=== PATIENT | male | born 1970 | race Caucasian/White ===

== ENCOUNTER 2018-03-31 20:57 | Emergency (ER) | payer MEDICAID, SELFPAY ==
[2018-03-31 20:58] VITALS: BP 144/87; PULSE 93; RESP 16; TEMP 36.9; O2SAT 99; BMI 25.8
--- NOTE | 2018-03-31 22:53 | RAD_ITS ---
STUDY: X-RAY - RIGHT SHOULDER REASON FOR EXAM: Male, 47 years old. Trauma TECHNIQUE: 4 view(s) of the shoulder. COMPARISON: None. FINDINGS: There is moderate degenerative arthrosis of the glenohumeral articulation. There is degenerative arthrosis of the acromioclavicular joint without inferior osseous spur formation. Normal acromion. There is no demonstrated inferior acromial spur. Normal humeral head and visualized proximal humerus. There is a metallic anchor in the humeral head suggesting prior rotator cuff surgery. The soft tissue structures are unremarkable. Normal visualized pulmonary apex. RAD/Shoulder min 2 Views IMPRESSION: There is degenerative arthrosis of the glenohumeral joint. There is NO fracture or dislocation. Electronically Signed: Reese Clemente MD at 2:00 EDT , Service support ,
--- NOTE | 2018-03-31 22:53 | EKG12_ITS ---
Test Reason : Blood Pressure : / mmHG Vent. Rate : 066 BPM Atrial Rate : 066 BPM P-R Int : 134 ms QRS Dur : 100 ms QT Int : 396 ms P-R-T Axes : 031 026 056 degrees QTc Int : 415 ms Normal sinus rhythm Normal ECG Confirmed by MARICRUZ DAO MD ([id number]), advertising editor SHANTHI MACK ([id number] on 04/02/2018 3:37:23 PM Referred By: VALENTINA Confirmed By:MARICRUZ DAO MD
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
--- NOTE | 2018-03-31 23:40 | RAD_ITS ---
STUDY: X-RAY CHEST REASON FOR EXAM: Male, 47 years old. Trauma TECHNIQUE: Frontal view COMPARISON: None. FINDINGS: The lungs are clear and expanded. There is no demonstrated pleural abnormality. Normal size heart. Normal mediastinum and bia. Normal visualized pulmonary arteries. Normal visualized aortic arch and descending thoracic aorta. Normal visualized thoracic spine. Normal visualized ribs, clavicles, and shoulders. There is no demonstrated abnormality of the visualized soft tissue structures of the upper abdomen. IMPRESSION: Normal x-ray examination of the chest. Electronically Signed: Reese Clemente MD at 0:22 EDT , Service support , STUDY: X-RAY - BILATERAL RIBS WITH CHEST REASON FOR EXAM: Male, 47 years old. Trauma TECHNIQUE - RIBS: 8 view(s) of the ribs. TECHNIQUE - CHEST: Single frontal view of the chest. COMPARISON: None. FINDINGS - RIBS : There is a fracture of LEFT rib #3. FINDINGS - CHEST: The lungs are clear and expanded. There is no demonstrated pleural abnormality. Normal size heart. Normal mediastinum and bia. Normal visualized pulmonary arteries. Normal visualized aortic arch and descending thoracic aorta. Normal visualized thoracic spine. Normal visualized ribs, clavicles, and shoulders. There is no demonstrated abnormality of the visualized soft tissue structures of the upper abdomen. RAD/Ribs Michael Min 4V w/PA Chest IMPRESSION: RIBS: Fracture of LEFT rib #3. CHEST: Normal x-ray examination of the chest. Electronically Signed: Reese Clemente MD at 0:23 EDT , Service support ,
[2018-04-01 00:38] VITALS: BP 119/83; PULSE 69; RESP 16; O2SAT 99
--- NOTE | 2018-04-01 01:15 | ED.DEP ---
ED Disposition - Plan for ED Patient: Chief Complaint: Other, Pain/Inj Instructions: ED Fx Rib Prescriptions: Oxycodone HCl/Acetaminophen [Percocet 5/325] 1 tablet PO Q6H PRN PRN 2 Days #8 tablet PRN Reason: Pain Referrals: [facility] Doctor,Out of [Primary Care Provider] -
[2018-04-01] MEDS: oxyCODONE 5 MG Tablet PO (01:40)
== END 2018-04-01 01:41 | disposition home or self-care (01) ==
LOC: ED 23:11
PROVIDERS: Emergency Provider Emergency Medicine
DX: S22.32XA Fracture of one rib, left side, initial encounter for closed fracture (principal); W50.0XXA Accidental hit or strike by another person, initial encounter; Y93.9 Activity, unspecified; Y92.9 Unspecified place or not applicable; Z72.0 Tobacco use
CPT/HCPCS: 71111; 73030; 84484; 93005; 99284; A4216

== ENCOUNTER 2021-06-08 07:09 | Emergency (ER) | payer MEDICAID, SELFPAY ==
[2021-06-08 07:10] VITALS: BP 130/90; PULSE 82; RESP 16; TEMP 36.1; O2SAT 97; BMI 25.9
--- NOTE | 2021-06-08 07:19 | CT_ITS ---
STUDY: CT ABDOMEN AND PELVIS WITH CONTRAST REASON FOR EXAM: Male, 50 years old. RUQ pain, eval gallbladder RADIATION DOSAGE (If Supplied By Facility): CTDIvol = ( 13.96 ) mGy, DLP = ( 950.5 ) mGycm TECHNIQUE: Transaxial images were obtained from the dome of the diaphragm to the symphysis pubis without oral contrast. IV 100mL Isovue-300 was administered. Sagittal and coronal images were reconstructed. Individualized dose optimization techniques were used for this CT. COMPARISON: None. FINDINGS: Minimal degree of increased markings at the lung bases suggestive of basilar atelectasis. Coronary artery calcification. Normal liver. Normal gallbladder and extrahepatic biliary system. Normal spleen. Normal pancreas. Normal bilateral adrenal glands. Mild degree of right hydronephrosis and proximal right hydroureter. This is due to a 6.3 mm calculus in the proximal portion of the right ureter. There is evidence of a right perinephric and periureteric stranding. A punctate calcification is also seen in the lower pole calyx of the right kidney. Normal left kidney. Normal visualized stomach. Normal small intestine. There are scattered colonic diverticula consistent with diverticulosis. The appendix is visualized and appears normal. There is scattered atherosclerotic calcification of the abdominal aorta, without a demonstrated aneurysm. Normal inferior vena cava. Normal retroperitoneum. Normal urinary bladder. Prostate measures 3.4 cm x 3.9 cm. There is a small umbilical hernia containing fat. Disc space narrowing and degeneration at the L4-L5 level. CT/Abdomen/Pelvis W IV Cont ONLY IMPRESSION: 6.3 mm catheter is in the proximal portion of the right ureter causing right hydronephrosis and right hydroureter with right perinephric stranding. Punctate calculus in the lower pole calyx of the right kidney. Mild degree of bibasilar atelectasis. Electronically Signed: Mike Short MD at 8:04 EDT , Service support ,
--- NOTE | 2021-06-08 07:20 | EDS_ITS ---
HPI History of Present Illness Chief Complaint: Abd Pain Informant: patient Narrative Narrative: He states that this started around 5 AM this morning.Patient is a 50-year-old male who presents to the emergency department for right upper quadrant abdominal pain. He describes the pain as a sharp 15 out of 10. It does radiate into the back on the right side. He does have a history of kidney stones but does not feel that this is similar to that pain. He states any movement seems to make it worse. He did have an episode of vomiting this morning. No change of bowel movements lately. He denies any urinary symptoms. No fevers or chills. He tried taking a migraine medication because after he threw up he started to develop a pressure in his head. He denies any chest pain or shortness of breath. PFSH PFSH Home Medications [id number] [Excedrin Migraine Caplet] 1 ea PO DAILY PRN 11/03/14 [History Last Taken Unknown] fluticasone propionate 1 spray NASAL BID 03/31/18 [History Last Taken Unknown] oxycodone-acetaminophen 1 tab PO Q6H PRN PRN 2 Days #8 tablet 04/01/18 [Rx Last Taken Unknown] cephalexin 500 mg PO BID 7 Days #14 cap 06/08/21 [Rx Last Taken Unknown] naproxen [Naprosyn] 500 mg PO BID PRN #20 tab 06/08/21 [Rx Last Taken Unknown] ondansetron 4 mg PO Q8H PRN 4 Days #10 tab 06/08/21 [Rx Last Taken Unknown] oxycodone 5 mg PO Q8H PRN 4 Days #12 tab 06/08/21 [Rx Last Taken Unknown] tamsulosin [Flomax] 0.4 mg PO DAILY #7 cap 06/08/21 [Rx Last Taken Unknown] Allergy/AdvReac Type Severity Reaction Status Date / Time hydrocodone Allergy Rash Verified 06/08/21 07:09 venom-honey bee Allergy Unknown Verified 06/08/21 07:09 [bee venom (honey bee)] Surgical History (Updated 06/08/21 @ 07:19 by Susan Avelar) History of arthroplasty of right shoulder Social History Smoking Status: Current every day smoker tobacco type: cigarettes ROS ROS ED Constitutional Constitutional ED: Denies chills or fever(s) ENT ENT ED: Denies epistaxis or rhinorrhea Cardiovascular Cardiovascular: Denies chest pain or palpitations Respiratory/Chest Respiratory/Chest: Denies cough or dyspnea Gastrointestinal Gastrointestinal: Reports abdominal pain, nausea and vomiting; Denies constipation, diarrhea or melena Genitourinary Genitourinary ED: Denies dysuria, hematuria or urinary frequency Musculoskeletal Musculoskeletal: Denies back pain or neck pain Integumentary Denies rash Neurologic Neurologic: Denies dizziness or weakness EXAM Physical Exam Const Vital Signs: 06/08/21 07:10 06/08/21 11:35 Temperature 96.9 F L Temperature Source Temporal Pulse Rate 82 76 Respiratory Rate 16 16 Blood Pressure 130/90 H 125/97 H Blood Pressure Mean 103 106 Pulse Ox 97 98 Oxygen Delivery Method Room Air Room Air Positive well nourished and well developed General Appearance ED: well developed and NAD HEENT Reports normocephalic, head/scalp atraumatic and moist mucous membranes Eyes PERRL and EOMs intact bilaterally Neck supple Chest Wall inspection of chest normal Resp normal respiratory effort and clear to auscultation bilaterally Auscultation: Negative for rales, rhonchi or wheezes Cardio regular rate, regular rhythm and no murmurs GI normal to inspection, nondistended, normoactive bowel sounds GI Narrative: Tenderness in the right upper quadrant. Positive Roberts sign. No pain over McBurney's point. Palpation: soft; Negative for rebound tenderness present Back/Spine no CVA tenderness Extremity normal to inspection General Extremety ED: Negative for edema or tenderness General Extremity: Negative for edema Neuro Sensorium / Orientation: alert Motor Exam: strength 5/5 throughout Psych mental status grossly normal Skin no rashes or lesions noted MDM MDM MDM Narrative Medical decision making narrative: Patient presents to the ED for abdominal pain. He does have right upper quadrant tenderness on physical exam. His vital signs within normal limits. Patient was given a dose of morphine for symptomatic treatment. He does have a allergy to hydrocodone but states it is actually the shell he has had other opioid medications before in the past. We will treat him with morphine. Basic lab work being obtained along with CT scan of the abdomen/pelvis. Patient CT scan was significant for 6.3 mm proximal ureteral stone. There is hydronephrosis and perinephric stranding associated this. Patient's urine does show positive nitrites but no white blood cells or bacteria. I did discuss the case with the on-call urologist, Dr. Gena wilkerson. Since patient's pain is well controlled this time he does feel comfortable with him going home. He is given a prescription for Naprosyn and oxycodone. He is also given a prescription for Zofran to take as needed for nausea. He is given Flomax and Keflex prophylactically. He is given urology referral for close follow-up. Return precautions are reviewed with him. He understands and is agreeable this plan. Discharged home in stable condition. All questions answered. Lab Data Labs: Laboratory Results - last 24 hr 06/08/21 06/08/21 06/08/21 07:15 07:15 08:25 WBC 11.1 H RBC 4.63 Hgb 14.7 Hct 43.4 MCV 93.7 MCH 31.7 MCHC 33.9 RDW Std Deviation 42.6 RDW Coeff of Mukesh 12.4 Plt Count 249 MPV 9.3 Immature Gran % (Auto) 0.400 Neut % (Auto) 68.0 Lymph % (Auto) 21.2 Haakon % (Auto) 7.5 Eos % (Auto) 2.4 Baso % (Auto) 0.5 Absolute Neuts (auto) 7.6 Absolute Lymphs (auto) 2.36 Nucleated RBC % 0 Sodium 137 Potassium 3.8 Chloride 104 Carbon Dioxide 27.0 Anion Gap 6 BUN 16 Creatinine 1.22 Estim Creat Clear Calc 75.63 Est GFR (MDRD) Af Amer 81 Est GFR (MDRD) Non-Af 67 BUN/Creatinine Ratio 13.1 Glucose 124 H Calcium 9.2 Total Bilirubin 0.20 AST 19 ALT 26 Alkaline Phosphatase 67 Total Protein 7.4 Albumin 4.2 Globulin 3.2 Albumin/Globulin Ratio 1.3 Lipase 93 Urine Color Pamela Urine Clarity Cloudy Urine pH 5.0 Ur Specific [place] 1.020 Urine Protein 100 H Urine Glucose (UA) Normal Urine Ketones Negative Urine Occult Blood 250 H Urine Nitrite Positive H Urine Bilirubin Negative Urine Urobilinogen 1 H Ur Leukocyte Esterase 100 H Urine RBC > 100 SEEN Urine WBC 0 SEEN Ur Squamous Epith Cells 0 SEEN Calcium Oxalate Crystal 1+ Urine Bacteria 0 SEEN Urine Mucus 0 SEEN Radiography Diagnostic Testing: Radiology Impression Abdomen/Pelvis CT 06/08/21 07:19 IMPRESSION: 6.3 mm catheter is in the proximal portion of the right ureter causing right hydronephrosis and right hydroureter with right perinephric stranding. Punctate calculus in the lower pole calyx of the right kidney. Mild degree of bibasilar atelectasis. Electronically Signed: Mike Short MD at 8:04 EDT , Service support , Discharge Plan Triage Chief Complaint: Abd Pain ED Provider: Se Stephens Dx/Rx/DC Orders Clinical Impression: Kidney stone on right side Instructions: ED Kidney Stone w/ Colic Prescriptions: New naproxen [Naprosyn] 500 mg tablet 500 mg PO BID PRN (Reason: pain) Qty: 20 RF: 0 oxycodone 5 mg tablet 5 mg PO Q8H PRN (Reason: pain) 4 Days Qty: 12 RF: 0 ondansetron 4 mg tablet,disintegrating 4 mg PO Q8H PRN (Reason: nausea and vomiting) 4 Days Qty: 10 RF: 0 tamsulosin [Flomax] 0.4 mg capsule 0.4 mg PO DAILY Qty: 7 RF: 0 cephalexin 500 mg capsule 500 mg PO BID 7 Days Qty: 14 RF: 0 No Action Excedrin Migraine 1 EACH tablet 1 ea PO DAILY PRN (Reason: HEADACHE) RF: 0 fluticasone propionate 1 SPRAY spray,suspension 1 spray NASAL BID RF: 0 oxycodone-acetaminophen 1 TABLET tablet 1 tab PO Q6H PRN PRN (Reason: Pain) 2 Days Qty: 8 RF: 0 Primary Care Provider: Cory Uribe Referrals: Ceasar King MD [STAFF PHYSICIAN] - 2 Days Cory Uribe DO [Primary Care Provider] - Disposition Disposition: Home, Self Care Discharge Date/Time: 06/08/21 11:39
[2021-06-08] MEDS: Morphine 4 MG/ML Syringe IV (07:24)
[2021-06-08 07:28] LABS: Absolute Lymphocyte Count 2.36 X10^3/uL (0.83-4.51); Absolute Neutrophil Count 7.6 X10^3/uL (2.0-7.7); Basophil# 0.06 X10^3/uL; Basophil% 0.5 % (0-1); Eosinophil# 0.27 X10^3/uL; Eosinophils% 2.4 % (0-5); Hematocrit 43.4 % (40-54); Hemoglobin 14.7 g/dL (13.0-16.5); Lymphocyte # 2.36 X10^3/ul (0.83-4.51); Lymphocyte % 21.2 % (19-41); Mean Corp Hgb Conc 33.9 g/dL (32-36); Mean Corpuscular Hgb 31.7 pg (27.0-32.0); Mean Corpuscular Volume 93.7 fL (80-94); Mean Platelet Vol. 9.3 fl (6.2-12.0); Monocyte# 0.84 X10^3/uL; Monocyte% 7.5 % (0-10); NRBC Flagged by Analyzer 0 % (0-5); Neutrophil # 7.57 X10^3/uL (2.7-7.7); Platelet Count 249 K/mm3 (150-450); RBC Distribution Width CV 12.4 % (11.6-14.6); RBC Distribution Width SD 42.6 fl (35.1-43.9); Red Blood Count 4.63 M/mm3 (4.6-6.2); White Blood Count 11.1 K/mm3 (4.4-11.0)
[2021-06-08 07:43] LABS: ALB/GLOB Ratio 1.3 RATIO (0.9-2.4); AST(SGOT) 19 U/L (15-37); Alanine Aminotransfer ALT/SGPT 26 U/L (16-61); Albumin, Serum 4.2 g/dL (3.2-5.0); Alkaline Phosphatase 67 U/L (45-117); Anion Gap 6 (5-15); BUN 16 mg/dL (7-18); BUN/Creat Ratio 13.1 RATIO (10-20); Calcium,Total 9.2 mg/dL (8.5-10.1); Chloride 104 mmol/L (98-107); Creatinine, Serum 1.22 mg/dL (0.70-1.30); EST Glomerular Filtration Rate 67 mL/min (>60); Est Glom Filt Rate - Afr Amer 81 mL/min (>60); Estimated Creatinine Clearance 75.63 ml/min; Globulin 3.2 g/dL (2.2-4.2); Glucose 124 mg/dL (74-106); Lipase 93 U/L (73-393); Potassium 3.8 mmol/L (3.5-5.1); Protein, Total 7.4 g/dL (6.4-8.2); Sodium Level 137 mmol/L (136-145)
[2021-06-08 08:30] LABS: Bacteria 0 SEEN /hpf (None Seen); Mucous, Urine 0 SEEN /hpf (<or=2+); Squamous Epithelial Cells - UA 0 SEEN /hpf (0-5); White Blood Cells 0 SEEN /hpf (0-5)
[2021-06-08 08:36] LABS: Color, Urine Amber (Yellow); Glucose, Dipstick Normal (Normal); Ketone-Dipstick Negative (Negative); Leukocyte Esterase-Dipstick 100 /ul (Negative); Nitrite-Dipstick Positive (Negative); Occult Blood-Urine 250 /ul (Negative); Protein-Dipstick 100 mg/dl (Negative); Urine Bilirubin Dipstick Negative (Negative); Urine Clarity Cloudy (Clear); Urine Urobilinogen 1 mg/dl (Normal)
[2021-06-08 08:49] LABS: Calcium Oxalate Crystals Ur 1+ /hpf (<or=2+); Red Blood Cells-Urine > 100 SEEN /hpf (0-5)
[2021-06-08] MEDS: Ketorolac 30 MG/ML Syringe IV (09:12)
[2021-06-08 11:35] VITALS: BP 125/97; PULSE 76; RESP 16; O2SAT 98
== END 2021-06-08 11:39 | disposition home or self-care (01) ==
PROVIDERS: Emergency Provider Emergency Medicine; PCP Family Medicine
DX: N13.2 Hydronephrosis with renal and ureteral calculous obstruction (principal); Z87.442 Personal history of urinary calculi; F17.210 Nicotine dependence, cigarettes, uncomplicated
CPT/HCPCS: 74177; 80053; 81001; 83690; 85025; 96361; 96374; 96375; 99283; Q9967; A4216; J0696

== ENCOUNTER 2021-06-27 10:35 | Emergency (ER) | payer MEDICAID, SELFPAY ==
[2021-06-27 10:37] VITALS: BP 141/96; PULSE 89; RESP 18; TEMP 36.7; O2SAT 97; BMI 25.8
--- NOTE | 2021-06-27 11:11 | US_ITS ---
STUDY: RENAL ULTRASOUND - COMPLETE REASON FOR EXAM: Male, 50 years old. Kidney stone, right . Known 6 mm proximal right ureteral calculus. TECHNIQUE: Ultrasound evaluation of the kidneys was performed with real-time and static black-scale imaging. COMPARISON: Comparison is made with prior CT scan abdomen and pelvis dated 06/08/2021. FINDINGS: RIGHT KIDNEY: Normal location of the right kidney, which is normal in size. The right kidney measures 11.8 cm x 5.8 cm x 5.6 cm. There is a normal cortex of the right kidney. The renal cortex measures 1.3 cm. There is no right renal mass or cyst. There are no right renal calculi. There is moderate hydronephrosis of the right kidney. DISTAL RIGHT URETER: There is non-visualization of the distal right ureter. There is no demonstrated right ureterovesical junction calculus. There is no demonstrated right ureteral jet. LEFT KIDNEY: Normal location of the left kidney, which is normal in size. The left kidney measures 11.2 cm x 5.1 cm x 5.8 cm. There is a normal cortex of the left kidney. The renal cortex measures 1.3 cm. There is no left renal mass or cyst. There are no left renal calculi. There is no left hydronephrosis. DISTAL LEFT URETER: There is non-visualization of the distal left ureter. There is no demonstrated left ureterovesical junction calculus. There is a visualized left ureteral jet. BLADDER: The distended urinary bladder has a volume of 57.2 ml. There is a normal wall thickness of the distended urinary bladder. There is no demonstrated mass within the urinary bladder. There are no demonstrated bladder calculi. US/Kidney and Bladder IMPRESSION: Moderate degree of right hydronephrosis. Electronically Signed: Mike Short MD at 12:26 EDT , Service support ,
[2021-06-27 11:22] LABS: Absolute Lymphocyte Count 1.51 X10^3/uL (0.83-4.51); Absolute Neutrophil Count 7.5 X10^3/uL (2.0-7.7); Basophil# 0.06 X10^3/uL; Basophil% 0.6 % (0-1); Eosinophil# 0.26 X10^3/uL; Eosinophils% 2.6 % (0-5); Hematocrit 44.7 % (40-54); Hemoglobin 15.2 g/dL (13.0-16.5); Lymphocyte # 1.51 X10^3/ul (0.83-4.51); Mean Corpuscular Volume 94.1 fL (80-94); Mean Platelet Vol. 9.5 fl (6.2-12.0); Monocyte# 0.69 X10^3/uL; Monocyte% 6.9 % (0-10); NRBC Flagged by Analyzer 0 % (0-5); Neutrophil # 7.46 X10^3/uL (2.7-7.7); Neutrophil % 74.3 % (47-70); Platelet Count 233 K/mm3 (150-450); RBC Distribution Width CV 12.5 % (11.6-14.6); RBC Distribution Width SD 43.7 fl (35.1-43.9); Red Blood Count 4.75 M/mm3 (4.6-6.2)
[2021-06-27 11:32] LABS: Anion Gap 6 (5-15); BUN 18 mg/dL (7-18); BUN/Creat Ratio 16.5 RATIO (10-20); Chloride 103 mmol/L (98-107); Creatinine, Serum 1.09 mg/dL (0.70-1.30); EST Glomerular Filtration Rate 76 mL/min (>60); Est Glom Filt Rate - Afr Amer 92 mL/min (>60); Estimated Creatinine Clearance 84.65 ml/min; Glucose 96 mg/dL (74-106); Potassium 3.8 mmol/L (3.5-5.1); Sodium Level 136 mmol/L (136-145)
[2021-06-27] MEDS: 0.9% Normal Saline 1,000 ML 250 ML IV (11:32)
[2021-06-27] MEDS: Ondansetron 4 MG/2 ML Vial IV (11:32)
[2021-06-27] MEDS: Ketorolac 30 MG/ML Syringe IV (11:32)
[2021-06-27] MEDS: Morphine 4 MG/ML Syringe IV (11:32)
[2021-06-27 12:54] LABS: Bacteria 0 SEEN /hpf (None Seen); Mucous, Urine 0 SEEN /hpf (<or=2+); Squamous Epithelial Cells - UA 0 SEEN /hpf (0-5)
[2021-06-27 12:55] LABS: Color, Urine Yellow (Yellow); Glucose, Dipstick Normal (Normal); Ketone-Dipstick Negative (Negative); Leukocyte Esterase-Dipstick 100 /ul (Negative); Nitrite-Dipstick Negative (Negative); Occult Blood-Urine 250 /ul (Negative); Protein-Dipstick 30 mg/dl (Negative); Urine Bilirubin Dipstick Negative (Negative); Urine Clarity Sl. Cloudy (Clear); Urine Urobilinogen Normal (Normal)
[2021-06-27 13:02] LABS: Red Blood Cells-Urine > 100 SEEN /hpf (0-5); White Blood Cells 0-5 SEEN /hpf (0-5)
[2021-06-27] MEDS: HYDROmorphone 1 MG/ML Syringe 0.5 MG IV (13:59)
--- NOTE | 2021-06-27 15:12 | EDS_ITS ---
HPI History of Present Illness Chief Complaint: Flank Pain Informant: patient Onset/Context/Timing Onset: Weeks (2) Timing: Continuous Quality: Sharp Location: Right flank Worsened by: Nothing Relieved by: Nothing Narrative Narrative: Patient presents with right flank pain that has been constant for the past 2 weeks. Patient was seen here at that time and was diagnosed with a 6.3 mm right proximal ureteral calculus. Patient states he has been unable to follow-up with a urologist. Patient states he has tried to contact multiple urologists without success. Patient states nothing makes his pain worse and nothing makes it better. Patient admits to some nausea and vomiting. Patient admits to some hematuria. Patient denies any dysuria. [facility] Medical History Kidney stone Home Medications [id number] [Excedrin Migraine Caplet] 1 ea PO DAILY PRN 11/03/14 [History Last Taken Unknown] fluticasone propionate 1 spray NASAL BID 03/31/18 [History Last Taken Unknown] ondansetron 4 mg PO Q8H PRN 4 Days #10 tab 06/08/21 [Rx Last Taken Unknown] oxycodone-acetaminophen 1 tab PO Q6H PRN PRN 5 Days #20 tablet 06/27/21 [Rx Last Taken Unknown] Allergy/AdvReac Type Severity Reaction Status Date / Time hydrocodone Allergy Rash Verified 06/27/21 10:39 venom-honey bee Allergy Unknown Verified 06/27/21 10:39 [bee venom (honey bee)] Surgical History History of arthroplasty of right shoulder Hx of left knee surgery Social History Smoking Status: Current every day smoker tobacco type: cigarettes ROS ROS ED Constitutional Constitutional ED: Denies chills or fever(s) Eyes Eyes: Denies blurry vision or change in vision ENT ENT ED: Denies rhinorrhea or sore throat Cardiovascular Cardiovascular: Denies chest pain or palpitations Respiratory/Chest Respiratory/Chest: Reports cough; Denies dyspnea Gastrointestinal Gastrointestinal: Reports nausea and vomiting Genitourinary Genitourinary ED: Reports hematuria; Denies dysuria Musculoskeletal Musculoskeletal: Reports back pain; Denies neck pain Integumentary Denies abscess or rash Neurologic Neurologic: Denies headache(s) or weakness Allergic/Immunologic Allergic/Immunologic ED: Denies mouth swelling or urticaria EXAM Physical Exam Const Vital Signs: 06/27/21 10:37 06/27/21 15:27 Temperature 98.0 F Temperature Source Temporal Pulse Rate 89 62 Respiratory Rate 18 15 Blood Pressure 141/96 H 138/77 H Blood Pressure Mean 111 Pulse Ox 97 98 Oxygen Delivery Method Room Air Positive well nourished and well developed General Appearance ED: well developed HEENT Reports moist mucous membranes Neck supple and no JVD Resp normal respiratory effort and clear to auscultation bilaterally Cardio regular rate, regular rhythm and no murmurs GI normal to inspection, nondistended, normoactive bowel sounds and non-tender Palpation: soft Back/Spine General Back: CVA tenderness right Extremity normal to inspection General Extremety ED: Negative for edema or tenderness General Extremity: Negative for edema Neuro oriented x3, CN's II-XII intact bilaterally and no sensory deficits noted Sensorium / Orientation: alert Motor Exam: strength 5/5 throughout Psych mental status grossly normal Skin no rashes or lesions noted MDM MDM MDM Narrative Medical decision making narrative: Patient was given IV fluids, morphine, and Zofran initially. CBC was within normal limits. Basic metabolic profile was normal. Urinalysis shows occult blood of 250 with greater than 100 red blood cells. There is no evidence of urinary tract infection. Renal ultrasound was obtained. There is right hydronephrosis. The distal ureter was not visualized. There is no right ureteral jet noted. There is a ureteral jet noted on the left. This was interpreted by the radiologist and reviewed by myself. Patient states his pain has improved but is still present. Patient was given a dose of Dilaudid. Patient was given prescription for Percocet. Patient was instructed to follow-up with his primary care physician in 5 to 7 days. Patient was also given a referral to urology. Patient understood and was agreeable with the plan. All questions were answered. Lab Data Labs: Laboratory Results - last 24 hr 06/27/21 06/27/21 06/27/21 11:01 11:01 12:40 WBC 10.0 RBC 4.75 Hgb 15.2 Hct 44.7 MCV 94.1 H MCH 32.0 MCHC 34.0 RDW Std Deviation 43.7 RDW Coeff of Mukesh 12.5 Plt Count 233 MPV 9.5 Immature Gran % (Auto) 0.600 Neut % (Auto) 74.3 H Lymph % (Auto) 15.0 L [place] % (Auto) 6.9 Eos % (Auto) 2.6 Baso % (Auto) 0.6 Absolute Neuts (auto) 7.5 Absolute Lymphs (auto) 1.51 Nucleated RBC % 0 Sodium 136 Potassium 3.8 Chloride 103 Carbon Dioxide 27.0 Anion Gap 6 BUN 18 Creatinine 1.09 Estim Creat Clear Calc 84.65 Est GFR (MDRD) Af Amer 92 Est GFR (MDRD) Non-Af 76 BUN/Creatinine Ratio 16.5 Glucose 96 Calcium 9.0 Urine Color Yellow Urine Clarity Sl. Cloudy Urine pH 6.0 Ur Specific [place] 1.010 Urine Protein 30 H Urine Glucose (UA) Normal Urine Ketones Negative Urine Occult Blood 250 H Urine Nitrite Negative Urine Bilirubin Negative Urine Urobilinogen Normal Ur Leukocyte Esterase 100 H Urine RBC > 100 SEEN Urine WBC 0-5 SEEN Ur Squamous Epith Cells 0 SEEN Urine Bacteria 0 SEEN Urine Mucus 0 SEEN Radiography Diagnostic Testing: Radiology Impression Renal Ultrasound 06/27/21 11:11 IMPRESSION: Moderate degree of right hydronephrosis. Electronically Signed: Mike Short MD at 12:26 EDT , Service support , Discharge Plan Triage Chief Complaint: Flank Pain ED Provider: Constantin Blake Dx/Rx/DC Orders Clinical Impression: Kidney stone Instructions: ED Kidney Stone w/ Colic Prescriptions: New oxycodone-acetaminophen [oxycodone-acetaminophen] 1 TABLET tablet 1 tab PO Q6H PRN PRN (Reason: pain) 5 Days Qty: 20 RF: 0 No Action Excedrin Migraine 1 EACH tablet 1 ea PO DAILY PRN (Reason: HEADACHE) RF: 0 fluticasone propionate 1 SPRAY spray,suspension 1 spray NASAL BID RF: 0 ondansetron 4 mg tablet,disintegrating 4 mg PO Q8H PRN (Reason: nausea and vomiting) 4 Days Qty: 10 RF: 0 Primary Care Provider: Cory Uribe Referrals: Cory Uribe DO [Primary Care Provider] - 3-5 Days Mihai Isabel MD [NON-STAFF] - As soon as possible Disposition Disposition: Home, Self Care Discharge Date/Time: 06/27/21 15:28
[2021-06-27 15:27] VITALS: BP 138/77; PULSE 62; RESP 15; O2SAT 98
== END 2021-06-27 15:28 | disposition home or self-care (01) ==
PROVIDERS: Emergency Provider Emergency Medicine; PCP Family Medicine
DX: N13.2 Hydronephrosis with renal and ureteral calculous obstruction (principal); F17.210 Nicotine dependence, cigarettes, uncomplicated
CPT/HCPCS: 76770; 80048; 81001; 85025; 96361; 96374; 96375; 99284; J7030; A4216; J2405

== ENCOUNTER 2022-06-11 22:09 | Emergency (ER) | payer MEDICAID, SELFPAY ==
[2022-06-11 22:09] VITALS: BP 139/80; PULSE 85; RESP 14; TEMP 36.6; O2SAT 98; BMI 24.7
--- NOTE | 2022-06-11 22:17 | ED.VIS.FALL ---
HPI HPI - Fall History of Present Illness Chief Complaint: Fall Detail of Chief Complaint: Slipped down a hill. Patient landed on his back. Informant: patient Occured/Mechanism Occurred: Today (Her due this morning) Mechanism/Context: Yes same level fall and Yes slip Narrative: Patient states he slipped on a hill. He complains of upper back pain. He has a prior history of dorsal spine fracture. Fall from Height (ft): Standing Usually ambulates: Without assistance Pain/Injury Location: Upper dorsal spine, midline Pain Location: back Quality of Pain: Dull and Aching Current Severity: Mild Maximum Severity: Moderate Worsened by: Movement and breathing Relieved by: Nothing Associated Symptoms Associated Symptoms: Negative for Parasthesias, Weakness, Loss of function, Inability to ambulate, Loss of consciousness or Amnesia Narrative Narrative: Patient is a 51-year-old male with no significant past medical history who presents because of upper back pain status post fall. He [place]. He states he slid down. He hit his upper back. He had a similar fall in 2016 and fractured T4. He does report pain with breathing. He denies shortness of breath. [place] head trauma. He denies nausea or vomiting. He denies paresthesia, anesthesia or motor weakness upper or lower extremity. He has no other complaints. Prior similar symptoms: Yes Recent Illness/Hospitalization: No [facility] Medical History Kidney stone Home Medications [id number]-[id number]-frdrrzdh 250 mg-250 mg-65 mg tablet (Excedrin Migraine) 1 ea PO DAILY PRN HEADACHE 11/03/14 [History Last Taken Unknown] fluticasone propionate 50 mcg/actuation nasal spray,suspension 1 spray BID 03/31/18 [History Last Taken Unknown] ondansetron 4 mg disintegrating tablet 4 mg PO Q8H PRN nausea and vomiting 4 days #10 tabs 06/08/21 [Rx Last Taken Unknown] oxycodone-acetaminophen 5 mg-325 mg tablet 1 tab PO Q6H PRN PRN pain 5 days #20 TABLETS 06/27/21 [Rx Last Taken Unknown] oxycodone-acetaminophen 5 mg-325 mg tablet 1 tab PO Q6H PRN PRN Pain 3 days #12 TABLETS 06/11/22 [Rx Last Taken Unknown] Allergy/AdvReac Type Severity Reaction Status Date / Time hydrocodone Allergy Rash Verified 06/11/22 22:12 venom-honey bee Allergy Unknown Verified 06/11/22 22:12 [bee venom (honey bee)] Surgical History History of arthroplasty of right shoulder Hx of left knee surgery Social History (Updated 06/11/22 @ 22:[address] Juan Feliz MD) household members: spouse Smoking Status: Current every day smoker tobacco type: cigarettes substance use type: does not use ROS ROS ED Constitutional Constitutional ED: Denies chills, fever(s), subjective, sweats or weight loss Eyes Eyes: Denies blurry vision, change in vision or diplopia ENT ENT ED: Denies ear pain, rhinorrhea or sore throat Cardiovascular Cardiovascular: Denies chest pain or palpitations Respiratory/Chest Respiratory/Chest: Denies cough, dyspnea or dyspnea on exertion Gastrointestinal Gastrointestinal: Denies abdominal pain, nausea or vomiting Genitourinary Genitourinary ED: Denies hematuria Musculoskeletal Musculoskeletal: Reports back pain; Denies myalgias or neck pain Integumentary Denies Abrasions or rash Neurologic Neurologic: Denies headache(s), paresthesias or weakness Hematologic/Lymphatic Hematologic/Lymphatic: Denies easy bleeding or easy bruising EXAM Physical Exam Const Vital Signs: 06/11/22 22:09 Temperature 97.8 F Temperature Source Temporal Pulse Rate 85 Respiratory Rate 14 Blood Pressure 139/80 H Blood Pressure Mean 99 Pulse Ox 98 Oxygen Delivery Method Room Air Positive well nourished and well developed Constitutional Narrative: Patient appears uncomfortable. He is walking gingerly. General Appearance ED: well developed HEENT Reports normocephalic HEENT Narrative: Ears normal. Nares patent. No septal deviation hematoma. No evidence of dental trauma. atraumatic Eyes PERRL and EOMs intact bilaterally Eyes Narrative: No subconjunctival hemorrhage noted. General Eye ED: Negative for pale conjunctiva or scleral icterus Neck full ROM, no lymphadenopathy and supple Chest Wall inspection of chest normal and palpation of chest normal Resp normal respiratory effort, no retractions and clear to auscultation bilaterally Cardio regular rate, regular rhythm, S1 normal heart sound, S2 normal heart sound and no murmurs GI non-tender, non-distended and no masses Auscultation: normoactive bowel sounds Palpation: soft Back/Spine no CVA tenderness Cervical Spine: cervical spine tenderness Thoracic Spine / Upper Back: pain with ROM and thoracic spinal tenderness T4, T5 and T6 Lumbar Spine / Lower Back: Negative for lumbar spinal tenderness or paraspinal muscle tenderness Neuro oriented x3, CN's II-XII intact bilaterally, moves all extremities, no focal motor deficits and no sensory deficits noted Kennedy Coma Scale: document GCS findings Spontaneous Obeys Commands Oriented 15 Sensorium / Orientation: alert, oriented to person, oriented to place and oriented to time Psych mental status grossly normal Skin Lesions: no lesions Rashes: no rashes Trauma: Negative for abrasion MDM MDM MDM Narrative Medical decision making narrative: Patient was medicated with open allergies and since he has taken NSAIDs at home with no improvement. X-ray was obtained to rule out fracture versus contusion. Radiography Diagnostic Testin view x-ray of the thoracic/dorsal spine was obtained. There is minimal degenerative changes noted. There is no evidence of fracture. There is no evidence of subluxation or dislocation. There is no prevertebral soft tissue swelling noted. Discharge Plan Triage Chief Complaint: Fall ED Provider: Juan Feliz Dx/Rx/DC Orders Clinical Impression: Contusion of upper back Instructions: ED Back Contusion Prescriptions: New oxycodone-acetaminophen [oxycodone-acetaminophen] 5-325 mg tablet 1 tab PO Q6H PRN PRN (Reason: Pain) 3 Days Qty: 12 0RF No Action Excedrin Migraine 1 EACH tablet 1 ea PO DAILY PRN (Reason: HEADACHE) fluticasone propionate 1 SPRAY spray,suspension 1 spray NASAL BID ondansetron 4 mg tablet,disintegrating 4 mg PO Q8H PRN (Reason: nausea and vomiting) 4 Days Qty: 10 0RF oxycodone-acetaminophen [oxycodone-acetaminophen] 1 TABLET tablet 1 tab PO Q6H PRN PRN (Reason: pain) 5 Days Qty: 20 0RF Primary Care Provider: Cory Uribe Referrals: Cory Uribe DO [Primary Care Provider] - 1 Week if not improving Activity Restrictions/Additional Instructions: 1. Apply ice 6-10 times a day for the next 3 to 5 days. 2. Take either 4 ibuprofen tablets every 8 hours or 2 Aleve tablets every 12 hours for the next 3 to 5 days. Disposition Disposition: Home, Self Care
--- NOTE | 2022-06-11 22:22 | RAD_ITS ---
INDICATION: Injury/Pain EXAMINATION/TECHNIQUE: X-RAY - XR Spine Thoracic 3 Views COMPARISON: FINDINGS: VERTEBRAE: Preserved vertebral body height. No fracture. No spondylolisthesis. Preservation of the normal thoracic kyphosis. Multilevel anterior marginal osteophytes are present. No destructive bony process. DISCS: Disc spaces are maintained. INCLUDED CHEST/ABDOMEN: No acute abnormalities. RAD/Thoracic Spine 3 Views IMPRESSION: 1. No evidence of thoracic spinal fracture or spondylolisthesis. 2. Multilevel thoracic spondylosis with marginal osteophyte formation. Electronically Signed: Carlos Kolb MD at 22:46 EDT ,
[2022-06-11 22:36] VITALS: TEMP 36.6; O2SAT 96
[2022-06-11 22:42] VITALS: BP 124/81; PULSE 83; RESP 16; TEMP 36.2; O2SAT 96
[2022-06-11] MEDS: oxyCODONE 5 MG Tablet PO (22:47)
== END 2022-06-11 22:49 | disposition home or self-care (01) ==
PROVIDERS: Emergency Provider Emergency Medicine; PCP Family Medicine; Visit Provider Emergency Medicine
DX: S20.229A Contusion of unspecified back wall of thorax, initial encounter (principal); W01.0XXA Fall on same level from slipping, tripping and stumbling without subsequent striking against object, initial encounter; F17.210 Nicotine dependence, cigarettes, uncomplicated
CPT/HCPCS: 72072; 99283

== ENCOUNTER 2022-10-07 22:58 | Emergency (ER) | payer MEDICAID, SELFPAY ==
[2022-10-07 22:59] VITALS: BP 146/89; PULSE 118; RESP 16; TEMP 36.3; O2SAT 96; BMI 23.9
--- NOTE | 2022-10-08 00:01 | EX.ED.DYSGE1 ---
HPI History of Present Illness Chief Complaint: Other, Pain/Inj Informant: patient Narrative Narrative: Patient is a 52-year-old male presenting from home with perirectal pain. Patient had diarrhea a week ago and a couple days after the diarrhea started improving started to have itching to his rectum and then noticed redness and irritation in his butt crack in his butt cheeks. He thinks he may be has some type of chemical burn. Initially bath helps but then when he tried to use soap to the area it really stung. He has had improvement with vaginocele. Has tried mqql-wmq-jkeiwfs ketoconazole but states that it penny. Denies any blood in his stool. His bowel movements have improved. Denies any pain in his testicles or scrotum. Denies any urinary symptoms. Has no other complaints at this time. Denies any history of any GI issues or family history including ulcer colitis or Crohn's disease. Does not have any sores or pain in his mouth or anywhere else. No other complaints at this time. [facility] Medical History Kidney stone Home Medications rvmsxkf-crwirrpnnsira-ghyhynjb 250 mg-250 mg-65 mg tablet (Excedrin Migraine) 1 ea PO DAILY PRN HEADACHE 11/03/14 [History Last Taken Unknown] fluticasone propionate 50 mcg/actuation nasal spray,suspension 1 spray BID 03/31/18 [History Last Taken Unknown] nystatin-triamcinolone 100,000 unit/g-0.1 % topical cream 1 applic topical BID to perirectal skin #15 grams 10/08/22 [Rx Last Taken Unknown] Allergy/AdvReac Type Severity Reaction Status Date / Time hydrocodone Allergy Rash Verified 10/07/22 23:01 venom-honey bee Allergy Unknown Verified 10/07/22 23:01 [bee venom (honey bee)] Surgical History History of arthroplasty of right shoulder Hx of left knee surgery Social History household members: spouse Smoking Status: Current every day smoker tobacco type: cigarettes substance use type: does not use ROS ROS ED Constitutional Constitutional ED: Denies chills or fever(s) Eyes Eyes: Denies change in vision Cardiovascular Cardiovascular: Denies chest pain or palpitations Respiratory/Chest Respiratory/Chest: Denies cough Gastrointestinal Gastrointestinal: Reports diarrhea; Denies abdominal pain, nausea or vomiting Genitourinary Genitourinary ED: Denies dysuria or hematuria Musculoskeletal Musculoskeletal: Denies arthralgias or myalgias Integumentary Reports rash Neurologic Neurologic: Denies headache(s) or weakness Psychiatric Psychiatric: Denies anxiety EXAM Physical Exam Const Vital Signs: 10/07/22 22:59 10/07/22 23:39 Temperature 97.4 F L Temperature Source Temporal Pulse Rate 118 H Respiratory Rate 16 Respiratory Effort Normal Respiratory Pattern Normal Blood Pressure 146/89 H Blood Pressure Mean 108 Pulse Ox 96 Oxygen Delivery Method Room Air Positive well nourished and well developed General Appearance ED: well developed and NAD HEENT Reports moist mucous membranes Eyes PERRL and EOMs intact bilaterally Neck supple Chest Wall inspection of chest normal and palpation of chest normal Resp normal respiratory effort and clear to auscultation bilaterally Cardio regular rate, regular rhythm and no murmurs GI normal to inspection, nondistended, normoactive bowel sounds and non-tender Back/Spine no CVA tenderness Extremity normal to inspection General Extremety ED: Negative for edema General Extremity: Negative for edema Neuro oriented x3 Sensorium / Orientation: alert Motor Exam: Negative for general weakness Psych mental status grossly normal Skin Skin Narrative: Patient has macerated/erythema to the perirectal area. No abscess appreciated. There are red macules with satellite lesions associated with it. No active bleeding. No involvement of the scrotum or testicles. This is consistent with dermatitis with questionable superimposed fungal infection. MDM MDM MDM Narrative Medical decision making narrative: Patient evaluated for irritation and skin around his rectum. He appears nontoxic in no acute distress. Does not appear clinically dehydrated. Abdomen is soft and nontender. I suspect patient has contact dermatitis from irritation associate with his diarrhea and repeated wiping. As diarrhea is improving I do not think further work-up for that is indicated. Patient not having mouth sores not any medications that could cause Recinos-Scott syndrome/TENS. Negative Nikolsky sign. He would be an unusual age to be presentation for ulcerative colitis or Crohn's disease so a lower suspicion for that. Is instructed to continue to use ketoconazole 2% as well as barrier cream such as A&D and to avoid wiping or any type of excess irritation to the area. Patient verbalizes agreement understand this plan. He is given return precautions. Is given a [id number]-[id number] course of nystatin cream if it does not improve with more conservative measures (ketoconazole and barrier cream.) Discharge Plan Triage Chief Complaint: Other, Pain/Inj ED Provider: Sydney Witt Dx/Rx/DC Orders Clinical Impression: Contact dermatitis, Irritation of perirectal skin Instructions: ED Kaye Diaper Rash Prescriptions: New nystatin-triamcinolone 100,000-0.1 unit/g-% cream 1 applic topical BID Qty: 15 0RF No Action Excedrin Migraine 1 EACH tablet 1 ea PO DAILY PRN (Reason: HEADACHE) fluticasone propionate 1 SPRAY spray,suspension 1 spray NASAL BID Primary Care Provider: Cory Uribe Referrals: Cory Uribe DO [Primary Care Provider] - Activity Restrictions/Additional Instructions: Use barrier cream such as A&E or Desitin (multiple times a day as long as there is always a thick coat on the affected area) as well as the 2% ketoconazole gwzj-cxf-zockwnu ointments once a day. If you do not start to have improvement you have been prescribed a different antifungal/steroid cream to use instead of the ketoconazole. Disposition Disposition: Home, Self Care
== END 2022-10-08 00:13 | disposition home or self-care (01) ==
PROVIDERS: Emergency Provider Emergency Medicine; PCP Family Medicine; Visit Provider Emergency Medicine
DX: L25.9 Unspecified contact dermatitis, unspecified cause (principal); F17.210 Nicotine dependence, cigarettes, uncomplicated
CPT/HCPCS: 99282